=== PATIENT | male | born 1955 | race Caucasian/White ===

== ENCOUNTER → 2017-01-17 | Outpatient (CLI) | payer BC | END | disposition home or self-care (01) | LOC: RAD 10:44 | PROVIDERS: ATTEND Otolaryngology | DX: K13.4 Granuloma and granuloma-like lesions of oral mucosa (principal); R22.1 Localized swelling, mass and lump, neck; H92.01 Otalgia, right ear | CPT/HCPCS: 70460; 70491 ==

== ENCOUNTER → 2017-01-27 | Outpatient (CLI) | payer BC | END | disposition home or self-care (01) | LOC: PETCFH 10:08 | PROVIDERS: ATTEND Otolaryngology | DX: C02.9 Malignant neoplasm of tongue, unspecified (principal); I25.10 Atherosclerotic heart disease of native coronary artery without angina pectoris; J84.10 Pulmonary fibrosis, unspecified | CPT/HCPCS: 78815; A9552 ==

== ENCOUNTER 2017-02-03 06:25 | Day surgery (SDC) | payer BC ==
[~2017-02-03] VITALS: Ht 177.8 cm; Wt 89.0 kg
[~2017-02-03 06:25] MED LIST: OXYC-302 PO
[2017-02-03] MEDS ORDERED: BUPIVACAINE/PF-EPI 0.5% 1:200K ONE (06:43)
[2017-02-03] MEDS ORDERED: HEPARIN 1,000 UNITS/ML, 10ML ONE (06:46)
[2017-02-03 07:07] VITALS: BP 133/78
[2017-02-03] MEDS ORDERED: LACTATED RINGERS 1,000 ML IV SCH (07:07)
[2017-02-03] MEDS ORDERED: MIDAZOLAM 1 MG/ML, 2ML ONE (07:11)
[2017-02-03] MEDS ORDERED: FENTANYL PF 250 MCG/5ML ONE (07:11)
[2017-02-03] MEDS ORDERED: CEFAZOLIN 1,000 MG ONE (07:25)
[2017-02-03] MEDS ORDERED: PROPOFOL 10 MG/ML, 20ML ONE (07:25)
[2017-02-03] MEDS ORDERED: GLYCOPYRROLATE 0.2MG/1ML ONE (07:25)
[2017-02-03] MEDS ORDERED: ACETAMINOPHEN 325 MG TABLET PO PRN (08:30)
[2017-02-03] MEDS ORDERED: MIDAZOLAM 1 MG/ML, 2ML IV PRN (08:30)
[2017-02-03] MEDS ORDERED: LABETALOL 5MG/ML, 20ML IV PRN (08:30)
[2017-02-03] MEDS ORDERED: ONDANSETRON 2MG/ML, 2ML IVPush PRN (08:30)
[2017-02-03] MEDS ORDERED: OXYcodone 5 MG/5 ML ORAL.SOL UDC PO PRN (08:30)
[2017-02-03] MEDS ORDERED: ALBUTEROL/IPRATROPIUM 2.5MG/0.5MG, 3 ML NPPB PRN (08:30)
[2017-02-03] MEDS ORDERED: MEPERIDINE/PF 25MG/0.5ML IVPush PRN (08:30)
[2017-02-03] MEDS ORDERED: PROMETHAZINE 25 MG/ML, 1ML IV PRN (08:30)
[2017-02-03] MEDS ORDERED: hydrALAzine 20 MG/ML, 1ML IV PRN (08:30)
[2017-02-03] MEDS ORDERED: HYDROmorphone 2 MG/ML, 1ML ONE ×2 (08:51→09:25)
[2017-02-03] MEDS ORDERED: FENTANYL PF 100 MCG/2ML ONE (08:51)
[2017-02-03] MEDS ORDERED: ONDANSETRON 2MG/ML, 2ML ONE (08:52)
[2017-02-03] MEDS ORDERED: OXYcodone 5 MG/5 ML ORAL.SOL UDC ONE (08:52)
[2017-02-03] MEDS: FENTANYL PF 100 MCG/2ML IV PRN ×2 (08:56→09:05)
[2017-02-03] MEDS: HYDROmorphone 1 MG/ML, 1ML IV PRN ×8 (09:01→09:54)
== END 2017-02-03 12:15 | disposition home or self-care (01) ==
LOC: OUT 06:25
PROVIDERS: ATTEND Surgery
DX: C01 Malignant neoplasm of base of tongue (principal); Z45.2 Encounter for adjustment and management of vascular access device; Z98.1 Arthrodesis status; Z72.89 Other problems related to lifestyle; Z87.891 Personal history of nicotine dependence; Z80.41 Family history of malignant neoplasm of ovary
CPT/HCPCS: 36561; 43653; 77001; B4087; J0690; J1170; J1644; J2250; J2405; J2704; J3010; J7120; J3490

== ENCOUNTER → 2017-02-06 | Outpatient (CLI) | payer BC | END | disposition home or self-care (01) | LOC: RAD 12:32 | PROVIDERS: ATTEND Internal Medicine Hematology & Oncology | DX: C76.0 Malignant neoplasm of head, face and neck (principal) | CPT/HCPCS: 36598; 76000; J1642 ==

== ENCOUNTER 2017-02-10 07:05 | Inpatient (IN) | payer BC ==
[~2017-02-10] VITALS: Ht 177.8 cm; Wt 92.3 kg
[~2017-02-10 07:05] MED LIST changes: +BUPIVACAINE/PF-EPI 0.25% 1:200K ONE; +HEPARIN 5,000 UNITS/ML, 1ML ONE
[2017-02-10] MEDS ORDERED: MIDAZOLAM 1 MG/ML, 2ML ONE ×2 (07:37→10:56)
[2017-02-10] MEDS ORDERED: FENTANYL PF 100 MCG/2ML ONE ×2 (07:37→10:56)
[2017-02-10 08:00] VITALS: BP 131/71
[2017-02-10] MEDS ORDERED: PHENYLEPHRINE 10 MG/ML ONE (08:08)
[2017-02-10] MEDS ORDERED: PROPOFOL 10 MG/ML, 20ML ONE (08:08)
[2017-02-10] MEDS ORDERED: ROCURONIUM 10 MG/ML ONE (08:08)
[2017-02-10] MEDS ORDERED: CEFAZOLIN 1,000 MG ONE (08:08)
[2017-02-10] MEDS ORDERED: SUCCINYLCHOLINE 20 MG/ML, 10ML ONE (08:08)
[2017-02-10] MEDS ORDERED: ONDANSETRON 2MG/ML, 2ML ONE (08:08)
[2017-02-10] MEDS ORDERED: HEPARIN 1,000 UNITS/ML, 10ML ONE (08:17)
[2017-02-10] MEDS ORDERED: hydrALAzine 20 MG/ML, 1ML IV PRN (08:30)
[2017-02-10] MEDS ORDERED: ACETAMINOPHEN 325 MG TABLET PO PRN (08:30)
[2017-02-10] MEDS ORDERED: HYDROcodone/APAP 7.5-325MG/15ML UDC PO PRN (08:30)
[2017-02-10] MEDS ORDERED: ALBUTEROL SULFATE 2.5 MG/3 ML NPPB PRN (08:30)
[2017-02-10] MEDS ORDERED: LABETALOL 5MG/ML, 20ML IV PRN (08:30)
[2017-02-10] MEDS ORDERED: EPHEDRINE 50 MG/ML, 1ML IVPush PRN (08:30)
[2017-02-10] MEDS ORDERED: FENTANYL PF 100 MCG/2ML IV PRN (08:30)
[2017-02-10] MEDS ORDERED: ONDANSETRON 2MG/ML, 2ML IVPush PRN (08:30)
[2017-02-10] MEDS ORDERED: METOPROLOL 1 MG/ML, 5ML IV PRN (08:30)
[2017-02-10] MEDS ORDERED: VISIPAQUE 270 MG/ML, 50ML BOTTLE ONE ×2 (09:43→10:16)
[2017-02-10] MEDS ORDERED: PROPOFOL 100 ML IV PRN (11:40)
[2017-02-10] MEDS ORDERED: OXYcodone/APAP 5/325MG TABLET PO PRN (12:00)
[2017-02-10] MEDS: HEPARIN 5,000 UNITS/ML, 1ML SQ SCH ×2 (12:00→20:00)
[2017-02-10] MEDS ORDERED: SENNOSIDES 8.8 MG/5 ML ORAL SOL NG PRN (12:00)
[2017-02-10] MEDS ORDERED: SENNA/DOCUSATE TABLET NG PRN (12:00)
[2017-02-10] MEDS ORDERED: HYDROcodone/APAP 5/325 TABLET PO PRN (12:00)
[2017-02-10] MEDS ORDERED: LACTULOSE 20 GM/30 ML UDC NG PRN (12:00)
[2017-02-10] MEDS ORDERED: LIDOCAINE-MPF 1%, 2ML ENDO PRN (12:00)
[2017-02-10] MEDS ORDERED: PHARMACY MAY ADJ FOR RENAL FX MC SCH (12:00)
[2017-02-10] MEDS ORDERED: BISACODYL 10 MG SUPP PR PRN (12:00)
[2017-02-10 12:10] LABS: HEMOGLOBIN 12.5 g/dL (13.7-18.0)
[2017-02-10] MEDS ORDERED: FENTANYL PF 100 MCG/2ML IVPush ONE (12:30)
[2017-02-10] MEDS: MORPHINE SULFATE 4 MG/ML, 1ML IVPush PRN ×2 (12:38→13:30)
[2017-02-10] MEDS ORDERED: DEXAMETHASONE 4 MG/ML, 1ML IV ONE (16:00)
[2017-02-10] MEDS ORDERED: HYDROmorphone 2 MG/ML, 1ML ONE (16:10)
[2017-02-10] MEDS ORDERED: HYDROmorphone PCA 30 MG/30 ML IV PRN (16:30)
[2017-02-10] MEDS: LIDODERM 5% PATCH TD SCH (17:32)
[2017-02-10] MEDS: SODIUM CHLORIDE 0.9% 1,000 ML IV SCH ×2 (17:34→21:02)
[2017-02-10 18:36] LABS: HEMOGLOBIN 11.4 g/dL (13.7-18.0)
[2017-02-10] MEDS: DEXAMETHASONE 4 MG/ML, 1ML IVPush SCH (21:37)
[2017-02-11 01:12] LABS: HEMOGLOBIN 9.9 g/dL (13.7-18.0)
[2017-02-11 05:57] LABS: ABG COLLECTION SITE ARTERIAL LINE
[2017-02-11] MEDS: DEXAMETHASONE 4 MG/ML, 1ML IVPush SCH (06:06)
[2017-02-11 06:26] LABS: HEMOGLOBIN 10.2 g/dL (13.7-18.0)
[2017-02-11 06:39] LABS: BLOOD UREA NITROGEN 11 mg/dL (7-18)
[2017-02-11] MEDS ORDERED: PANTOPRAZOLE 40 MG IV IV SCH (09:00)
[2017-02-11] MEDS: HYDROmorphone 2MG TABLET PO PRN ×4 (11:21→22:47)
[2017-02-11 12:02] LABS: HEMOGLOBIN 10.9 g/dL (13.7-18.0)
[2017-02-11 12:20] VITALS: BP 122/70
[2017-02-11] MEDS: LIDODERM 5% PATCH TD SCH ×2 (15:33→20:22)
[2017-02-11] MEDS ORDERED: HYDROmorphone 2MG TABLET PO PRN (17:30)
[2017-02-11 20:19] VITALS: BP 125/75
[2017-02-12] MEDS: HYDROmorphone 2MG TABLET PO PRN ×6 (02:13→21:36)
[2017-02-12 02:14] VITALS: BP 143/78
[2017-02-12] MEDS ORDERED: HYDROmorphone 2 MG/ML, 1ML ONE (04:33)
[2017-02-12] MEDS ORDERED: HYDROmorphone 1 MG/ML, 1ML IVPush ONE (05:00)
[2017-02-12 05:55] LABS: HEMOGLOBIN 10.6 g/dL (13.7-18.0)
[2017-02-12 06:18] LABS: BLOOD UREA NITROGEN 13 mg/dL (7-18)
[2017-02-12 08:08] VITALS: BP 120/65
[2017-02-12] MEDS ORDERED: HYDROmorphone 2 MG/ML, 1ML IVPush ONE (08:20)
[2017-02-12] MEDS ORDERED: HYDROmorphone 2 MG/ML, 1ML IV PRN (10:00)
[2017-02-12 13:58] VITALS: BP 119/70
[2017-02-12] MEDS ORDERED: FOSAPREPITANT 150 MG in SODIUM CHLORIDE 0.9% 150 ML IV ONE (16:00)
[2017-02-12] MEDS ORDERED: ONDANSETRON 12 MG, DEXAMETHASONE 10 MG in SODIUM CHLORIDE 0.9% 50 ML IVPB ONE (16:00)
[2017-02-12] MEDS ORDERED: CISPLATIN IV ONE (16:30)
[2017-02-12] MEDS ORDERED: SODIUM CHLORIDE 0.9% IV ONE (16:30)
[2017-02-12] MEDS ORDERED: MANNITOL 0.25 GM/ML, 50ML IV ONE (17:30)
[2017-02-12] MEDS: SODIUM CHLORIDE 0.9% 1,000 ML IV SCH (17:43)
[2017-02-12 20:00] VITALS: BP 119/66
[2017-02-12] MEDS ORDERED: MANNITOL 25% 12.5 GM in SODIUM CHLORIDE 0.9% 1,000 ML IV ONE (20:00)
[2017-02-12] MEDS ORDERED: FILTER 0.22 MICRON IV ONE (20:00)
[2017-02-12] MEDS: LIDODERM 5% PATCH TD SCH (21:00)
[2017-02-13 00:56] VITALS: BP 103/60
[2017-02-13] MEDS: HYDROmorphone 2MG TABLET PO PRN ×4 (01:20→12:44)
[2017-02-13] MEDS: SODIUM CHLORIDE 0.9% 1,000 ML IV SCH ×2 (04:05→10:27)
[2017-02-13 04:43] LABS: BLOOD UREA NITROGEN 10 mg/dL (7-18)
[2017-02-13 04:46] LABS: ASPARTATE AMINO TRANSFERASE 15 U/L (15-37)
[2017-02-13 07:37] VITALS: BP 115/63
[2017-02-13] MEDS ORDERED: ONDANSETRON 2MG/ML, 2ML IVPush PRN (08:30)
[2017-02-13] MEDS ORDERED: HYDR2TAB13 PO (11:06)
[2017-02-13 13:55] VITALS: BP 107/63
== END 2017-02-13 15:47 | disposition home or self-care (01) | DRG 208 ==
LOC: OUT 07:05 → CCU 11:13 → OUT 12:00 → CCU 12:01 → 4NOR 02-11 11:54 → 3NW 02-12 13:42
PROVIDERS: ADMIT Surgery; ATTEND Surgery
PROC: 30233N1 Transfusion of Nonautologous Red Blood Cells into Peripheral Vein, Percutaneous Approach (ICD-10-PCS; 2017-02-10)
PROC: 0JPT0XZ Removal of Tunneled Vascular Access Device from Trunk Subcutaneous Tissue and Fascia, Open Approach (ICD-10-PCS; 2017-02-10)
PROC: B5161ZZ Fluoroscopy of Right Subclavian Vein using Low Osmolar Contrast (ICD-10-PCS; 2017-02-10)
PROC: 0JH60XZ Insertion of Tunneled Vascular Access Device into Chest Subcutaneous Tissue and Fascia, Open Approach (ICD-10-PCS; 2017-02-10)
PROC: 02PY33Z Removal of Infusion Device from Great Vessel, Percutaneous Approach (ICD-10-PCS; 2017-02-10)
PROC: 02HV33Z Insertion of Infusion Device into Superior Vena Cava, Percutaneous Approach (ICD-10-PCS; 2017-02-10)
PROC: B5181ZA Fluoroscopy of Superior Vena Cava using Low Osmolar Contrast, Guidance (ICD-10-PCS; 2017-02-10)
PROC: 0W9930Z Drainage of Right Pleural Cavity with Drainage Device, Percutaneous Approach (ICD-10-PCS; 2017-02-10)
PROC: 0BH17EZ Insertion of Endotracheal Airway into Trachea, Via Natural or Artificial Opening (ICD-10-PCS; 2017-02-10)
PROC: 5A1935Z Respiratory Ventilation, Less than 24 Consecutive Hours (ICD-10-PCS; principal; 2017-02-10 12:15)
PROC: B3101ZZ Fluoroscopy of Thoracic Aorta using Low Osmolar Contrast (ICD-10-PCS; 2017-02-10 12:15)
PROC: B31H1ZZ Fluoroscopy of Right Upper Extremity Arteries using Low Osmolar Contrast (ICD-10-PCS; 2017-02-10 12:15)
DX: J94.2 Hemothorax (principal); J96.00 Acute respiratory failure, unspecified whether with hypoxia or hypercapnia; T82.514A Breakdown (mechanical) of infusion catheter, initial encounter; Z99.11 Dependence on respirator [ventilator] status; C01 Malignant neoplasm of base of tongue; Y83.8 Other surgical procedures as the cause of abnormal reaction of the patient, or of later complication, without mention of misadventure at the time of the procedure; Y92.89 Other specified places as the place of occurrence of the external cause; Z72.0 Tobacco use; Z80.41 Family history of malignant neoplasm of ovary; Z93.1 Gastrostomy status
CPT/HCPCS: 36415; 36600; 71010; 75710; 77001; 77336; 77386; 80047; 80048; 80053; 82803; 83735; 84478; 85025; 86850; 86900; 86923; 87070; 87081; 87205; 94002; C1729; J0690; J1100; J1170; J1453; J1644; J2250; J2405; J2704; J3010; J7613; J9060; Q9966; C1769; C1788; J0330; J2150; J2370; J7030; J7050; P9016

== ENCOUNTER → 2017-05-19 | Outpatient (CLI) | payer BC ==
[~2017-05-19] MED LIST changes: -BUPIVACAINE/PF-EPI 0.25% 1:200K ONE; -HEPARIN 5,000 UNITS/ML, 1ML ONE; +HYDR2TAB29 PO
== END | disposition home or self-care (01) ==
LOC: PETCFH 08:20
PROVIDERS: ATTEND Radiology Radiation Oncology
DX: C01 Malignant neoplasm of base of tongue (principal); D17.39 Benign lipomatous neoplasm of skin and subcutaneous tissue of other sites
CPT/HCPCS: 78815; A9552

== ENCOUNTER → 2017-05-22 | Outpatient (CLI) | payer BC | END | disposition home or self-care (01) | LOC: ROC 08:38 | PROVIDERS: ATTEND Radiology Radiation Oncology | DX: C01 Malignant neoplasm of base of tongue (principal); Z88.0 Allergy status to penicillin | CPT/HCPCS: 99212; G0463 ==

== ENCOUNTER → 2017-06-10 | Outpatient (CLI) | payer BC ==
[~2017-06-10] MED LIST changes: +OMNIPAQUE 350 MG/ML, 100ML BOTTLE ONE
== END | disposition home or self-care (01) ==
LOC: RAD 14:07
PROVIDERS: ATTEND Internal Medicine Hematology & Oncology
DX: C76.0 Malignant neoplasm of head, face and neck (principal); J34.89 Other specified disorders of nose and nasal sinuses
CPT/HCPCS: 70491; Q9967

== ENCOUNTER 2017-08-05 10:20 | Day surgery (SDC) | payer BC ==
[~2017-08-05] VITALS: Ht 177.8 cm; Wt 83.0 kg
[~2017-08-05 10:20] MED LIST changes: -OMNIPAQUE 350 MG/ML, 100ML BOTTLE ONE
[2017-08-05] MEDS ORDERED: SODIUM CHLORIDE 0.9% 1,000 ML IV SCH (10:44)
[2017-08-05 10:45] VITALS: BP 112/72
[2017-08-05] MEDS ORDERED: PLEASE ENTER HEIGHT AND WEIGHT MC SCH (11:00)
[2017-08-05] MEDS ORDERED: LIDOCAINE 1%, 20ML ONE (12:27)
[2017-08-05] MEDS ORDERED: FENTANYL PF 100 MCG/2ML ONE (12:32)
[2017-08-05] MEDS ORDERED: MIDAZOLAM 1 MG/ML, 5ML ONE (12:32)
[2017-08-05] MEDS ORDERED: FLUMAZENIL 0.1 MG/1 ML, 5ML ONE (12:33)
[2017-08-05] MEDS ORDERED: NALOXONE 1 MG/ML, 2ML ONE (12:33)
== END 2017-08-05 14:45 | disposition home or self-care (01) ==
LOC: OUT 10:20
PROVIDERS: ATTEND Internal Medicine Hematology & Oncology
DX: Z45.2 Encounter for adjustment and management of vascular access device (principal); C14.0 Malignant neoplasm of pharynx, unspecified; Z72.89 Other problems related to lifestyle
CPT/HCPCS: 36590; 77001; 99156; 99157; J2250; J3010; J3490; J2310

== ENCOUNTER → 2017-08-25 | Outpatient (CLI) | payer BC | END | disposition home or self-care (01) | LOC: ROC 14:12 | PROVIDERS: ATTEND Radiology Radiation Oncology | DX: C01 Malignant neoplasm of base of tongue (principal) | CPT/HCPCS: 99212; G0463 ==

== ENCOUNTER → 2017-10-29 | Outpatient (CLI) | payer BC | END | disposition home or self-care (01) | LOC: PETCFH 09:16 | PROVIDERS: ATTEND Otolaryngology | DX: C00-D49 Neoplasms (principal) | CPT/HCPCS: 78815; A9552 ==

== ENCOUNTER → 2017-12-11 | Outpatient (CLI) | payer BC | END | disposition home or self-care (01) | LOC: ROC 14:11 | PROVIDERS: ATTEND Radiology Radiation Oncology | DX: Z08 Encounter for follow-up examination after completed treatment for malignant neoplasm (principal); C01 Malignant neoplasm of base of tongue | CPT/HCPCS: 99212; G0463 ==

== ENCOUNTER → 2018-05-13 | Outpatient (CLI) | payer BC | END | disposition home or self-care (01) | LOC: PETCFH 07:50 | PROVIDERS: ATTEND Internal Medicine Hematology & Oncology | DX: C76.0 Malignant neoplasm of head, face and neck (principal); C14.0 Malignant neoplasm of pharynx, unspecified; I31.3 Pericardial effusion (noninflammatory); K57.30 Diverticulosis of large intestine without perforation or abscess without bleeding | CPT/HCPCS: 78815; A9552 ==

== ENCOUNTER → 2018-06-04 | Outpatient (CLI) | payer BC | END | disposition home or self-care (01) | LOC: ROC 08:59 | PROVIDERS: ATTEND Radiology Radiation Oncology | DX: C01 Malignant neoplasm of base of tongue (principal) | CPT/HCPCS: 99212; G0463 ==

== ENCOUNTER → 2019-04-19 | Outpatient (CLI) | payer BC | END | disposition home or self-care (01) | LOC: ROC 07:35 | PROVIDERS: ATTEND Radiology Radiation Oncology | DX: C01 Malignant neoplasm of base of tongue (principal); Z88.0 Allergy status to penicillin; Z79.899 Other long term (current) drug therapy | CPT/HCPCS: 99212; G0463 ==

== ENCOUNTER 2020-05-01 12:01 | Outpatient (CLI) | payer BC ==
[2020-05-01] MEDS ORDERED: OMNIPAQUE 350 MG/ML, 150 ML BOTTLE ONE (14:40)
== END 2020-05-01 23:59 | disposition home or self-care (01) ==
LOC: CFH 12:01
PROVIDERS: ATTEND Internal Medicine Hematology & Oncology
DX: C76.0 Malignant neoplasm of head, face and neck (principal); I25.10 Atherosclerotic heart disease of native coronary artery without angina pectoris
CPT/HCPCS: 70491; 71260; Q9967

== ENCOUNTER 2020-05-08 07:36 | Outpatient (CLI) | payer BC | END 2020-05-08 23:59 | disposition home or self-care (01) | LOC: ROC 07:36 | PROVIDERS: ATTEND Radiology Radiation Oncology | DX: C01 Malignant neoplasm of base of tongue (principal) | CPT/HCPCS: 99212; G0463 ==